=== PATIENT | male | born 1980 | race Caucasian/White ===

== ENCOUNTER 2017-07-10 17:17 | Emergency (ER) | payer SELFPAY ==
[~2017-07-10] VITALS: Ht 172.7 cm; Wt 75.0 kg
[~2017-07-10 17:17] MED LIST: DIAZ5 PO; HYDR-3129 PO; HYDR-3535 PO; MEDR4PAK3 PO; muscle relaxer PO
[2017-07-10 17:25] VITALS: BP 122/62; PULSE 100; RESP 16; TEMP 100.9; O2SAT 99
[2017-07-10 17:51] VITALS: BP 127/70; PULSE 105; RESP 16; TEMP 100.8; O2SAT 97
[2017-07-10] MEDS ORDERED: SULFAMETHOXAZOLE-TRIMETHOPRIM DS 800-160 MG TAB PO ONE (18:00)
[2017-07-10] MEDS ORDERED: ACETAMINOPHEN 325 MG TAB PO ONE (18:00)
[2017-07-10] MEDS ORDERED: KETOROLAC TROMETHAMINE 60 MG/2 ML (IM) VIAL IM ONE (18:00)
--- NOTE | 2017-07-10 18:07 | PD ---
HPI Chief Complaint: Skin Problem Time Seen by Provider: 17:37 Travel History International Travel<30 days: No Contact w/Intl Traveler<30days: No Traveled to known affect area: No History of Present Illness HPI 36yo M with no PMH presents to the ED with c/o pain behind his right ankle and left buttock for 2 days. Said he was working in the yard 2 days ago and was bit by something. Said he had fever today. Denies any chest pain, sob, n/v, abdominal pain, focal weakness or numbness. Said the bite in his left buttocks started draining today. PFSH Past Medical History Medical History: Denies Significant Hx Diminished Hearing: No Influenza Vaccination: Yes ?: Not Past Surgical History Surgical History: No Previous Surgery Social History Alcohol Use: No Tobacco Use: No Substance Use: No Allergies-Medications (Allergen,Severity, Reaction): Coded Allergies: No Known Allergies (Verified Adverse Reaction, Unknown, 07/10/17) Reported Meds & Prescriptions Reported Meds & Active Scripts Active Valium (Diazepam) 5 Mg Tab 5 Mg PO TID PRN [place] 10/325 (Hydrocodone-Acetaminophen 10/325) Acetaminophen 325/10 Hydrocodone Tab 1 Tab PO Q6H PRN Medrol Dosepak (Methylprednisolone) 4 Mg Vishal 4 Mg PO DIRECTED TAKE DIRECTED Reported [muscle relaxer] 1 Tab PO Q6 Lortab 10 mg/325 mg (Hydrocodone/Acetaminophen 10 mg/325 mg) 1 Tab 1 Tab PO Q4H PRN Review of Systems Except as stated in HPI: all other systems reviewed are Neg Physical Exam Narrative GENERAL: 36yo M in mild distress. SKIN: Focused skin assessment warm/dry. HEAD: Atraumatic. Normocephalic. EYES: Pupils equal and round. No scleral icterus. No injection or drainage. ENT: No nasal bleeding or discharge. Mucous membranes pink and moist. NECK: Trachea midline. No JVD. CARDIOVASCULAR: Regular rate and rhythm. No murmur appreciated. RESPIRATORY: No accessory muscle use. Clear to auscultation. Breath sounds equal bilaterally. GASTROINTESTINAL: Abdomen soft, non-tender, nondistended. No rebound tenderness or guarding. RECTAL: +Mild erythema left perirectal region with purulent discharge that is draining. MUSCULOSKELETAL: Right ankle: Posterior ankle has 4cm by 4cm area of erythema with small white point. No fluctuance. NEUROLOGICAL: Awake and alert. No obvious cranial nerve deficits. Motor grossly within normal limits. Normal speech. PSYCHIATRIC: Appropriate mood and affect; insight and judgment normal. Data Data Last Documented VS Vital Signs Date Time Temp Pulse Resp B/P (MAP) Pulse Ox O2 Delivery O2 Flow Rate FiO2 07/10/17 18:27 100.2 97 20 115/67 (83) 97 07/10/17 17:51 Room Air Orders Orders Sulfamet-Trimeth Ds 800-160 Mg (Bactrim (07/10/17 18:00) Ketorolac Inj (Toradol Inj) (07/10/17 18:00) Acetaminophen (Tylenol) (07/10/17 18:00) Acetamin-Hydrocod 325-5 Mg ([place] 5-325 (07/10/17 18:45) MDM Medical Decision Making Medical Screen Exam Complete: Yes Emergency Medical Condition: Yes Differential Diagnosis Perirectal abscess vs. ankle cellulitis Narrative Course 36yo well appearing male here with c/o pain in left buttock and right ankle for 2 days. Pt was bit by something and the one in the left buttock is draining. I informed him that without CT scan, I cannot tell him how deep the abscess is in the left buttocks. Pt is refusing labs or CT scan at this time. He said he just wants pain medication and antibiotics. He is mildly febrile and tachycardic here with Temp of 100.9F and HR 100bpm. He meet sepsis criteria. Pt given toradol and bactrim. He is requesting hydrocodone and said he had it before and it really help. After much discussion, he said he will come back immediately if symptoms do not improve on antibiotics. Pt reevaluated at bedside and is feeling better. HR and temp has improved. Return precautions given. Diagnosis Primary Impression: Perirectal abscess Additional Impression: Cellulitis Qualified Codes: L03.115 - Cellulitis of right lower limb Patient Instructions: General Instructions Departure Forms: Tests/Procedures Additional Instructions: Please follow up with your primary care physician in 2-3 days. Return to the ED immediately if symptoms worsen. Med/Other Pt SpecificInfo: Prescription(s) given Scripts Hydrocodone-Acetaminophen (Hydrocodone-Acetaminophen) 5-300 Mg Tab 1 TAB PO Q6H Y for PAIN, #6 TAB 0 Refills Prov: Peres,Kayy DO 07/10/17 Sulfamethoxazole-Trimethoprim (Bactrim DS) 800-160 Mg Tab 1 TAB PO BID for Infection, #14 TAB 0 Refills Prov: Kayy Peres DO 07/10/17 Disposition: 01 DISCHARGE HOME Condition: Stable Kayy Peres DO Jul 10, 2017 18:07
[2017-07-10 18:27] VITALS: BP 115/67; PULSE 97; RESP 20; TEMP 100.2; O2SAT 97
[2017-07-10] MEDS ORDERED: HYDR-4107 PO (18:41)
[2017-07-10] MEDS ORDERED: BACT800T5 PO (18:41)
[2017-07-10] MEDS ORDERED: ACETAMINOPHEN/HYDROcodone 325 MG/5 MG TAB PO ONE (18:45)
== END 2017-07-10 19:31 | disposition home or self-care (01) ==
LOC: PHED 17:17 → PHEFT 19:31
DX: K61.1 Rectal abscess (principal); L03.115 Cellulitis of right lower limb; R00.0 Tachycardia, unspecified
CPT/HCPCS: 96372; 99284; J1885

== ENCOUNTER 2017-07-12 16:54 | Emergency (ER) | payer SELFPAY ==
[~2017-07-12] VITALS: Ht 172.7 cm; Wt 77.2 kg
[~2017-07-12 16:54] MED LIST changes: +BACT800T5 PO; +HYDR-4107 PO
[2017-07-12 17:07] VITALS: BP 134/60; PULSE 94; RESP 16; TEMP 98.5; O2SAT 99
[2017-07-12] MEDS ORDERED: LIDOCAINE HCL 1% PF 30 ML VIAL ONE (17:39)
[2017-07-12] MEDS ORDERED: LIDOCAINE HCL 1% 50 ML VIAL INFIL ONE (17:45)
[2017-07-12] MEDS ORDERED: oxyCODONE/ACETAMINOPHEN 5 MG/325 MG TAB PO ONE (17:45)
[2017-07-12 17:53] LABS: AUTOMATED NEUTROPHIL # 10.1 TH/MM3 (1.8-7.7); BASOPHIL # 0.1 TH/MM3 (0-0.2); BASOPHIL % 0.5 % (0.0-2.0); EOSINOPHIL # 0.2 TH/MM3 (0-0.4); EOSINOPHIL % 1.9 % (0.0-4.0); HEMATOCRIT 39.3 % (39.0-51.0); HEMOGLOBIN 13.4 GM/DL (13.0-17.0); LYMPH % 10.7 % (9.0-44.0); LYMPHOCYTE # 1.4 TH/MM3 (1.0-4.8); MEAN CELL VOLUME 92.6 FL (80.0-100.0); MEAN CORPUSCULAR HEMOGLOBIN 31.6 PG (27.0-34.0); MEAN CORPUSCULAR HGB CONC 34.1 % (32.0-36.0); MEAN PLATELET VOLUME 6.1 FL (7.0-11.0); MONO % 8.6 % (0.0-8.0); MONOCYTE # 1.1 TH/MM3 (0-0.9); NEUT % 78.3 % (16.0-70.0); PLATELET COUNT 297 TH/MM3 (150-450); RED BLOOD COUNT 4.24 MIL/MM3 (4.50-5.90); RED CELL DISTRIBUTION WIDTH 11.9 % (11.6-17.2); WHITE BLOOD COUNT 12.9 TH/MM3 (4.0-11.0)
[2017-07-12 18:00] LABS: CHLORIDE 100 MEQ/L (98-107); SODIUM (NA) 133 MEQ/L (136-145)
[2017-07-12 18:04] LABS: ALBUMIN 2.8 GM/DL (3.4-5.0); BICARBONATE 28.2 MEQ/L (21.0-32.0); BLOOD UREA NITROGEN 9 MG/DL (7-18); CALCIUM 8.4 MG/DL (8.5-10.1); GLUCOSE,RANDOM 73 MG/DL (74-106)
[2017-07-12 18:07] LABS: ALT (GPT) 19 U/L (12-78); AST (GOT) 10 U/L (15-37); CREATININE 0.75 MG/DL (0.60-1.30); GLOMERULAR FILTRATION RATE 117 ML/MIN (>89)
[2017-07-12 18:09] LABS: TOTAL BILIRUBIN ADULT LESS THAN 0.1 MG/DL (0.2-1.0); TOTAL PROTEIN 7.4 GM/DL (6.4-8.2)
[2017-07-12 18:10] LABS: ALKALINE PHOSPHATASE 190 U/L (45-117)
[2017-07-12] MEDS ORDERED: IOHEXOL 350 MG/ML 10 ML VIAL (for RAD DIAG) IVCONTRAST ONE (18:45)
--- NOTE | 2017-07-12 19:07 | PD ---
HPI Chief Complaint: Skin Problem Time Seen by Provider: 17:20 Travel History International Travel<30 days: No Contact w/Intl Traveler<30days: No Traveled to known affect area: No History of Present Illness HPI Patient is a 36-year-old male who comes in complaining of 2 painful abscesses. He was here 2 days ago and refused any testing. He was discharged with pain medicine and Bactrim. He says he has been taking both, but is still having considerable amount of pain. He has noted that both abscesses are draining. He denies any fever or chills. Severity is mild to moderate. PFSH Past Medical History Diminished Hearing: No Tetanus Vaccination: < 5 Years Past Surgical History Oral Surgery: Yes (TOOTH EXTRACTION) Social History Alcohol Use: No Tobacco Use: No Substance Use: No Allergies-Medications (Allergen,Severity, Reaction): Coded Allergies: No Known Allergies (Verified Adverse Reaction, Unknown, 07/12/17) Reported Meds & Prescriptions Reported Meds & Active Scripts Active Bactrim DS (Sulfamethoxazole-Trimethoprim) 800-160 Mg Tab 1 Tab PO BID Review of Systems Except as stated in HPI: all other systems reviewed are Neg General / Constitutional: No: Fever, Chills HENT: No: Headaches, Lightheadedness, Sore Throat Cardiovascular: No: Chest Pain or Discomfort Respiratory: No: Shortness of Breath Musculoskeletal: Positive: Pain Skin: Positive Lesions Neurologic: No: Weakness, Dizziness Physical Exam Narrative GENERAL: Awake and alert, in no acute distress. SKIN: Focused skin assessment warm/dry. 3cm area of fluctuance above the left ankle, small amount of purulent drainage. Area of fluctuance to the left buttocks with purulent drainage. HEAD: Atraumatic. Normocephalic. EYES: Pupils equal and round. No scleral icterus. ENT: Mucous membranes pink and moist. NECK: Trachea midline. No JVD. CARDIOVASCULAR: Regular rate and rhythm. No murmur appreciated. RESPIRATORY: No accessory muscle use. Clear to auscultation. Breath sounds equal bilaterally. MUSCULOSKELETAL: No obvious deformities. No clubbing. No cyanosis. No edema. NEUROLOGICAL: Awake and alert. No obvious cranial nerve deficits. Motor grossly within normal limits. Normal speech. PSYCHIATRIC: Appropriate mood and affect; insight and judgment normal. Data Data Last Documented VS Vital Signs Date Time Temp Pulse Resp B/P (MAP) Pulse Ox O2 Delivery O2 Flow Rate FiO2 07/12/17 17:07 98.5 94 16 134/60 (84) 99 Orders Orders Iv Access Insert/Monitor (07/12/17 17:34) Complete Blood Count With Diff (07/12/17 17:34) Comprehensive Metabolic Panel (07/12/17 17:34) Ct Pelvis W Iv Contrast(Rout) (07/12/17 ) Oxycodone-Acetamin 5-325 Mg (Percocet (07/12/17 17:45) Lidocaine 1% Inj (50 Ml) (Xylocaine 1% I (07/12/17 17:45) Lidocaine Pf 1% Inj (Xylocaine-Mpf 1% In (07/12/17 17:39) Iohexol 350 Inj (Omnipaque 350 Inj) (07/12/17 18:45) Wound Culture And Gram Stain (07/12/17 19:20) Vancomycin Inj (Vancomycin Inj) (07/12/17 19:30) Labs Laboratory Tests Test 07/12/17 17:40 White Blood Count 12.9 TH/MM3 Red Blood Count 4.24 MIL/MM3 Hemoglobin 13.4 GM/DL Hematocrit 39.3 % Mean Corpuscular Volume 92.6 FL Mean Corpuscular Hemoglobin 31.6 PG Mean Corpuscular Hemoglobin Concent 34.1 % Red Cell Distribution Width 11.9 % Platelet Count 297 TH/MM3 Mean Platelet Volume 6.1 FL Neutrophils (%) (Auto) 78.3 % Lymphocytes (%) (Auto) 10.7 % Monocytes (%) (Auto) 8.6 % Eosinophils (%) (Auto) 1.9 % Basophils (%) (Auto) 0.5 % Neutrophils # (Auto) 10.1 TH/MM3 Lymphocytes # (Auto) 1.4 TH/MM3 Monocytes # (Auto) 1.1 TH/MM3 Eosinophils # (Auto) 0.2 TH/MM3 Basophils # (Auto) 0.1 TH/MM3 CBC Comment DIFF FINAL Differential Comment Blood Urea Nitrogen 9 MG/DL Creatinine 0.75 MG/DL Random Glucose 73 MG/DL Total Protein 7.4 GM/DL Albumin 2.8 GM/DL Calcium Level 8.4 MG/DL Alkaline Phosphatase 190 U/L Aspartate Amino Transf (AST/SGOT) 10 U/L Alanine Aminotransferase (ALT/SGPT) 19 U/L Total Bilirubin LESS THAN 0.1 MG/DL Sodium Level 133 MEQ/L Potassium Level 3.4 MEQ/L Chloride Level 100 MEQ/L Carbon Dioxide Level 28.2 MEQ/L Anion Gap 5 MEQ/L Estimat Glomerular Filtration Rate 117 ML/MIN [facility] Medical Decision Making Medical Screen Exam Complete: Yes Emergency Medical Condition: Yes Medical Record Reviewed: Yes Differential Diagnosis Abscess versus cellulitis versus rectal abscess Narrative Course Patient is a 36-year-old male who comes in complaining of an abscess to his ankle and buttocks. Exam shows an area of fluctuance to the ankle as well as a draining area to the buttocks. IV sevens, labs sent. Labs show an elevated white blood cell count. CT of the pelvis performed shows an extensive area of cellulitis. Advised patient that he needs to stay for IV antibiotics. Vancomycin ordered. Patient is refusing to stay for the IV antibiotics or for admission. Given a prescription for doxycycline. Patient advised that he could become very sick and even from this infection. He understands the risks of leaving AGAINST MEDICAL ADVICE and has decided to sign out AMA. AMA: The risks of leaving against medical advice without further evaluation treatment were discussed with the patient. These risks include cardiac dysfunction, cardiac dysrhythmia, possible heart attack, possible stroke or . The patient indicated understanding of these risks and appeared to have the capacity to make this decision. Diagnosis Primary Impression: Cellulitis Qualified Codes: L03.317 - Cellulitis of buttock Patient Instructions: Cellulitis (ED), General Instructions Scripts Hydrocodone-Acetaminophen ([place]) 5 Mg-325 Mg Tab 1 TAB PO Q6H Y for PAIN, #6 TAB 0 Refills Prov: Angelica Carlisle MD 07/12/17 Doxycycline Hyclate (Doxycycline Hyclate) 100 Mg Cap 100 MG PO BID for Infection, #20 CAP 0 Refills Prov: Angelica Carlisle MD 07/12/17 Disposition: 07 AGAINST MEDICAL ADVICE Angelica Carlisle MD Jul 12, 2017 19:07
--- NOTE | 2017-07-12 19:14 | RADRPT ---
EXAM DATE/TIME: 07/12/2017 18:37 [facility] COMPARISON: No previous studies available for comparison. INDICATIONS : Perirectal abscess. Left buttock pain. IV CONTRAST: 95 cc Omnipaque 350 (iohexol) IV ORAL CONTRAST: No oral contrast ingested. RADIATION DOSE: 14.36 CTDIvol (mGy) MEDICAL HISTORY : None SURGICAL HISTORY : None. ENCOUNTER: Initial ACUITY: 2 days PAIN SCALE: 5/10 LOCATION: pelvis TECHNIQUE: Volumetric scanning of the pelvis was performed. Using automated exposure control and adjustment of t he mA and/or kV according to patient size, radiation dose was kept as low as reasonably achievable to obtain optimal diagnostic quality images. DICOM format image data is available electronically for review and comparison. FINDINGS: BOWEL/MESENTERY: There is increased density in the left perirectal soft tissues. This involves the left ischiorectal a nd ischioanal soft tissues. This extends over at least an 8 cm in length. This consistent with inflam matory change. There is minimal cystic areas too small to percutaneously drain. These all measure les s than 2 cm. The visualized small and large bowel demonstrate no acute abnormality. There is no free fluid. BLADDER: There is no wall thickening or mass. RETROPERITONEUM: There is no aneurysm or lymphadenopathy. REPRODUCTIVE: Within normal limits. INGUINAL: There mildly prominent lymph nodes in the inguinal regions bilaterally measuring up to 1.9 cm. MUSCULOSKELETAL: Within normal limits for patient age. CONCLUSION: Inflammatory change seen throughout the left ischiorectal and ischioanal soft tissues with scattered small areas of fluid. A drainable abscess is not seen. Kevon Alaniz MD on July 12, 2017 at 19:06 Board Certified Radiologist. This report was verified electronically.
[2017-07-12] MEDS ORDERED: VANCOMYCIN INJ 1,250 MG in SODIUM CHLOR 0.9% 250 ML INJ 250 ML IV ONE (19:30)
[2017-07-12] MEDS ORDERED: DOXY100C PO (20:16)
[2017-07-12] MEDS ORDERED: NORC5TAB PO (20:16)
== END 2017-07-12 20:26 | disposition left against medical advice (07) ==
LOC: PHEFT 16:54
DX: L03.317 Cellulitis of buttock (principal); B95.61 Methicillin susceptible Staphylococcus aureus infection as the cause of diseases classified elsewhere; Z16.29 Resistance to other single specified antibiotic
CPT/HCPCS: 72193; 80053; 85025; 87070; 99284; Q9967; 87205

== ENCOUNTER 2017-07-13 13:51 | Emergency (ER) | payer SELFPAY ==
[~2017-07-13 13:51] MED LIST changes: -DIAZ5 PO; +DOXY100C PO; -HYDR-3129 PO; -HYDR-3535 PO; -HYDR-4107 PO; -MEDR4PAK3 PO; +NORC5TAB PO; -muscle relaxer PO
[2017-07-13 14:00] VITALS: BP 116/67; PULSE 87; RESP 16; TEMP 97.6; O2SAT 100
[2017-07-14] MEDS ORDERED: BACT800T5 PO ×2 (10:11→10:23)
[2017-07-14] MEDS ORDERED: HYDR-4107 PO (10:23)
== END 2017-07-13 16:52 | disposition left against medical advice (07) ==
LOC: PHED 13:51
DX: Z48.817 Encounter for surgical aftercare following surgery on the skin and subcutaneous tissue (principal)
CPT/HCPCS: 99281

== ENCOUNTER 2017-07-14 09:32 | Emergency (ER) | payer SELFPAY ==
[~2017-07-14] VITALS: Ht 172.7 cm; Wt 77.0 kg
[2017-07-14 09:35] VITALS: BP 115/60; PULSE 93; RESP 18; TEMP 98.2; O2SAT 100
[2017-07-14] MEDS ORDERED: ACETAMINOPHEN/HYDROcodone 325 MG/5 MG TAB PO ONE (10:00)
[2017-07-14] MEDS ORDERED: VANCOMYCIN INJ 1,000 MG in SODIUM CHLOR 0.9% 250 ML INJ 250 ML IV ONE (10:00)
[2017-07-14] MEDS ORDERED: BACT800T5 PO ×2 (10:11→10:23)
--- NOTE | 2017-07-14 10:16 | PD ---
HPI Chief Complaint: Skin Problem Time Seen by Provider: 09:41 Travel History International Travel<30 days: No Contact w/Intl Traveler<30days: No Traveled to known affect area: No History of Present Illness HPI This is a 36-year-old male presented the ER for cellulitis of the left buttock. Patient was here before 2 times for the same problem and was given Bactrim and [place] for pain control and then he came back for the same reason and had a CAT scan done that showed cellulitis without drainable abscess. Patient states that his symptoms are improving and he is only here for 1 dose of IV antibiotic and refill of his pain medications. Patient denies any fever or chills he denies any pain anywhere else and reports improvement with antibiotics. PFSH Past Medical History Medical History: Denies Significant Hx Diminished Hearing: No Influenza Vaccination: Yes Past Surgical History Oral Surgery: Yes (TOOTH EXTRACTION) Social History Alcohol Use: No Tobacco Use: No Substance Use: No Allergies-Medications (Allergen,Severity, Reaction): Coded Allergies: No Known Allergies (Verified Adverse Reaction, Unknown, 07/14/17) Reported Meds & Prescriptions Reported Meds & Active Scripts Active Bactrim DS (Sulfamethoxazole-Trimethoprim) 800-160 Mg Tab 1 Tab PO BID Hydrocodone-Acetaminophen 5-300 Mg Tab 1 Tab PO Q6H PRN Reported Bactrim DS (Sulfamethoxazole-Trimethoprim) 800-160 Mg Tab 1 Tab PO BID Review of Systems Except as stated in HPI: all other systems reviewed are Neg Physical Exam Narrative GENERAL: Alert oriented 3 no acute distress SKIN: Focused skin assessment warm/dry. HEAD: Atraumatic. Normocephalic. EYES: Pupils equal and round. No scleral icterus. No injection or drainage. ENT: No nasal bleeding or discharge. Mucous membranes pink and moist. NECK: Trachea midline. No JVD. CARDIOVASCULAR: Regular rate and rhythm. No murmur appreciated. RESPIRATORY: No accessory muscle use. Clear to auscultation. Breath sounds equal bilaterally. GASTROINTESTINAL: Abdomen soft, non-tender, nondistended. Hepatic and splenic margins not palpable. MUSCULOSKELETAL: Area of induration in the left buttock approximately 2 cm, surrounded by a area of erythema and warmness and tenderness in the left buttock. No obvious deformities. No clubbing. No cyanosis. NEUROLOGICAL: Awake and alert. No obvious cranial nerve deficits. Motor grossly within normal limits. Normal speech. PSYCHIATRIC: Appropriate mood and affect; insight and judgment normal. Data Data Last Documented VS Vital Signs Date Time Temp Pulse Resp B/P (MAP) Pulse Ox O2 Delivery O2 Flow Rate FiO2 07/14/17 11:37 07/14/17 11:29 18 07/14/17 11:19 70 100 Room Air 07/14/17 09:35 98.2 Orders Orders Vancomycin Inj (Vancomycin Inj) (07/14/17 10:00) Acetamin-Hydrocod 325-5 Mg ([place] 5-325 (07/14/17 10:00) Ed Discharge Order (07/14/17 10:13) [facility] Medical Decision Making Medical Screen Exam Complete: Yes Emergency Medical Condition: Yes Differential Diagnosis Cellulitis, perirectal abscess. Narrative Course This is a 36-year-old male presents to the ER for left buttock cellulitis. CAT scan that was done 2 days ago shows tinnitus without area of drainable abscess. Patient was given Bactrim last ER visit as well as [place] and he states that his symptoms improved. Patient was advised to stay me for IV antibiotics and infectious disease consult for possible long-term IV antibiotics for a cellulitis since there is a risk of MRSA as well as infarction or sepsis. At that time patient refused to be admitted and lift without AMA. Patient is back for 1 dose of IV antibiotics and the refill of his pain medications. I discussed with the patient that I he will need to follow-up with surgery as well as primary care physician to see if he needs a long-term IV antibiotics, I also offered him to be admitted but he refused and states that he has to go back to work. I explained to the patient that one time dose of IV antibiotics is not going to cure him and he will need long-term IV antibiotics to resolve his cellulitis since this could get worse very fast. Patient understands although refused to be admitted. I gave him a prescription for [place] only 6 pills and told him that he will need to follow-up his primary care physician for pain control as well I also give him a referral for [facility] as well as Dr. mc infectious disease. His vitals now are not concerning for sepsis, is afebrile and not sick appearing. Diagnosis Primary Impression: Cellulitis Qualified Codes: L03.317 - Cellulitis of buttock Referrals: Quinn Mc MD Additional Instructions: Follow-up with primary care physician and surgery, return to ER if symptoms change or do not improve. Scripts Sulfamethoxazole-Trimethoprim (Bactrim DS) 800-160 Mg Tab 1 TAB PO BID for Infection, #14 TAB 0 Refills Prov: Ruperto Andre MD 07/14/17 Hydrocodone-Acetaminophen (Hydrocodone-Acetaminophen) 5-300 Mg Tab 1 TAB PO Q6H Y for PAIN, #6 TAB 0 Refills Prov: Ruperto Andre MD 07/14/17 Disposition: 01 DISCHARGE HOME Condition: Stable Ruperto Andre MD Jul 14, 2017 10:16
[2017-07-14] MEDS ORDERED: HYDR-4107 PO (10:23)
[2017-07-14 11:19] VITALS: BP 119/68; PULSE 70; RESP 18; O2SAT 100
[2017-07-14 11:29] VITALS: RESP 18
== END 2017-07-14 11:52 | disposition home or self-care (01) ==
LOC: PHED 09:32
DX: L03.317 Cellulitis of buttock (principal)
CPT/HCPCS: 96365; 99284; J3370; J7050